=== PATIENT | female | born 1940 | race Caucasian/White ===

== ENCOUNTER 2017-06-28 06:22 | Outpatient (CLI) | payer MEDICARE | END 2017-06-28 06:23 | disposition short-term general hospital (02) | LOC: EMS 06:22 | PROVIDERS: ATTEND Surgery | DX: R53.1 Weakness (principal) | CPT/HCPCS: A0425; A0427 ==

== ENCOUNTER 2017-08-01 13:34 | Outpatient (CLI) | payer MEDICARE | END 2017-08-01 13:35 | disposition critical access hospital (66) | LOC: EMS 13:34 | PROVIDERS: ATTEND Surgery | DX: R06.02 Shortness of breath (principal) | CPT/HCPCS: A0425; A0429 ==

== ENCOUNTER 2017-08-01 13:50 | Emergency (ER) | payer MEDICARE ==
--- NOTE | 2017-08-01 14:17 | ED Physician Documentation ---
PD HPI DYSPNEA - Stated complaint Stated Complaint: SOA - Chief complaint Chief Complaint: Resp - History obtained from History obtained from: Patient - History of Present Illness Timing - onset: Last night (She has noted some increased pedal/leg edema for the past week but only mild dyspnea. Onset of dyspnea with chest pressure last night about 1 am. Continues into today. She is feeling dyspnea similar to when she had pneumonia in May, but has not had cough nor fevers.) Timing - onset during: Rest Timing - duration: Hours Timing - details: Abrupt onset, Still present Inciting event(s): Immobilization/travel (she was in LTC/Rehab from recent pneumonia and back home the past week. Usually ambulates without assistance.). No: URI Worsened by: Exertion. No: Laying flat Associated symptoms: Wheezing, Chest pain / discomfort (anteriorly), Bilateral edema. No: Fever, Cough, Palpitations, Unilateral edema Similar symptoms before: Diagnosis (has had CHF and pneumonia in past few months.) Recently seen: Admitted (Was in [facility] 06-09-11 for pneumonia, CHF, anemia and CRF. Was in [facility] for anemia and dyspnea and had EGD showing some esophagitis. Had EGD done just this past week.) Review of Systems Constitutional: reports: Fatigue. denies: Fever, Chills, Myalgias Nose: denies: Rhinorrhea / runny nose, Congestion Throat: denies: Sore throat Cardiac: reports: Chest pain / pressure, Pedal edema. denies: Palpitations, Calf pain Respiratory: reports: Dyspnea. denies: Cough, Wheezing GI: denies: Abdominal Pain, Nausea, Vomiting, Diarrhea : denies: Dysuria, Frequency Skin: denies: Rash, Lesions Musculoskeletal: denies: Neck pain, Back pain Neurologic: reports: Generalized weakness. denies: Focal weakness, Numbness, Near syncope Psychiatric: denies: Anxiety Endocrine: reports: Weight loss Immunocompromised: denies: Immunocompromised PD PAST MEDICAL HISTORY - Past Medical History Cardiovascular: Hypertension, High cholesterol Respiratory: Shortness of breath - Past Surgical History Past Surgical History: Yes - Present Medications Home Medications: Ambulatory Orders Medication Instructions Recorded Confirmed Omeprazole [Prilosec] 20 mg PO DAILY 06/22/13 08/01/17 Cyanocobalamin (Vitamin B-12) 2,500 mcg PO DAILY 05/27/17 08/01/17 [Vitamin B-12] Furosemide [Lasix] 20 mg PO DAILY #7 tablet 06/13/17 08/01/17 Lisinopril 0 mg PO DAILY 08/01/17 08/01/17 - Allergies Allergies/Adverse Reactions: Allergies Allergy/AdvReac Type Severity Reaction Status Date / Time amlodipine [From [facility]] Allergy Unknown Verified 08/01/17 14:12 tramadol AdvReac Emesis Verified 06/09/17 06:43 - Living Situation Living Situation: reports: Alone Living Arrangement: reports: At home - Social History Does the pt smoke?: Yes Smoking Status: Current some day smoker Does the pt drink ETOH?: No Does the pt have substance abuse?: No - Family History Family history: reports: Non contributory. denies: Venous thromboembolism - Immunizations Immunizations are current?: Yes - POLST POLST Status: Full Code PD ED PE NORMAL - Vitals Vital signs reviewed: Yes (sats 86-88% RA and to 94% with NC oxygen. ) - General General: Alert and oriented X 3, Well developed/nourished - HEENT HEENT: Ears normal, Pharynx benign - Neck Neck: Supple, no meningeal sign, No adenopathy - Cardiac Cardiac: No murmur. No: RRR (tachycardic but regular) - Respiratory Respiratory: No: No respiratory distress (she is not having labored breathing nor tachypnea. ), Clear bilaterally (crackles at bases to bottom third, but not significant amount.) - Abdomen Abdomen: Soft, Non tender - Female Female : Deferred - Rectal Rectal: Deferred - Back Back: No CVA TTP - Derm Derm: Normal color, Warm and dry, No rash - Extremities Extremities: No deformity, No tenderness to palpate, Normal ROM s pain, No calf tenderness / cord, Other (2+ edema in both legs without tenderness. ) - Neuro Neuro: Alert and oriented X 3, No motor deficit, Normal speech - Psych Psych: Normal mood, Normal affect Results - Vitals Vitals: Vital Signs - 24 hr 08/01/17 08/01/17 08/01/17 13:50 14:30 14:45 Temperature 35.9 C L Heart Rate 100 107 H 116 H Respiratory 20 20 23 Rate Blood Pressure 150/91 H 145/83 H O2 Saturation 94 92 08/01/17 08/01/17 08/01/17 15:00 15:30 17:15 Temperature Heart Rate 116 H 116 H 108 H Respiratory 20 20 22 Rate Blood Pressure 159/91 H 162/87 H 136/77 H O2 Saturation 94 92 90 L Oxygen O2 Source Nasal cannula Oxygen Flow Rate 4 - EKG (time done) 13:57 Rate: Rate (enter#) (115) Rhythm: Sinus tachycardia [place]: Normal QRS: LVH Ischemia: Normal ST segments. No: ST elevation c/w ischemia, ST depression, Hyperacute T waves Compare to prior EKG: Changed from prior EKG (similar morphology but rate is faster. ) - Labs Labs: Laboratory Tests 08/01/17 08/01/17 08/01/17 14:52 14:52 14:52 WBC 10.6 RBC 2.49 L Hgb 7.9 L Hct 24.5 L MCV 98.5 MCH 31.6 H MCHC 32.1 RDW 17.8 H Plt Count 508 H MPV 7.1 L Neut # 9.4 H Lymph # 0.6 L [place] # 0.6 Eos # 0.0 Baso # 0.0 Absolute Nucleated RBC 0.01 Nucleated RBC % 0.1 D-Dimer Sodium 141 Potassium 3.9 Chloride 112 H Carbon Dioxide 18 L Anion Gap 11.0 BUN 36 H Creatinine 1.9 H Estimated GFR (MDRD) 26 L Glucose 113 H Calcium 8.8 Magnesium 1.8 Total Bilirubin 0.2 AST 21 ALT 14 Alkaline Phosphatase 88 Troponin I 0.83 H* B-Natriuretic Peptide Total Protein 6.8 Albumin 2.7 L Globulin 4.1 Albumin/Globulin Ratio 0.7 L Lipase 53 H 08/01/17 08/01/17 14:52 14:52 WBC RBC Hgb Hct MCV MCH MCHC RDW Plt Count MPV Neut # Lymph # [place] # Eos # Baso # Absolute Nucleated RBC Nucleated RBC % D-Dimer 425.0 H Sodium Potassium Chloride Carbon Dioxide Anion Gap BUN Creatinine Estimated GFR (MDRD) Glucose Calcium Magnesium Total Bilirubin AST ALT Alkaline Phosphatase Troponin I B-Natriuretic Peptide 7745.0 H Total Protein Albumin Globulin Albumin/Globulin Ratio Lipase - Rads (name of study) chest Radiology: Prelim report reviewed, EMP read contemporaneously (bilateral small effusions. Some interstitial changes c/w mild to moderate CHF. ) PD MEDICAL DECISION MAKING - ED course Complexity details: considered differential (Concern for likely CHF though her sats and HR are worse than expected based on exam. She is not in resp failure, but has considerable hypoxia. I am concerned for PE as well as CHF. Her GFR is too low for CT-A and we don't have Nuc Med (VQ) or ECHO for the next 3 days. I feel she needs to be at higher level of care. ), d/w patient, d/w computing consultant ( Dr. Keller Cardiology at [facility], and the Dr. Perkins Hospitalist, who accepts transfer. ), other (considering PE I did start Heparin but then talked with [facility] provider with recent EGD results of esophagitis with bleeding, so to not anticoagulate the patien. The Heparin was stopped. ) Departure - Departure Disposition: 02 Transfer Acute Care Hosp Clinical Impression: Hypoxia Congestive heart failure Qualifiers: Congestive heart failure type: unspecified congestive heart failure type Congestive heart failure chronicity: acute on chronic Qualified Code(s): I50.9 - Heart failure, unspecified Dyspnea Qualifiers: Dyspnea type: shortness of breath Qualified Code(s): R06.02 - Shortness of breath; R06.00 - Dyspnea, unspecified; R06.01 - Orthopnea CKD (chronic kidney disease) Qualifiers: Chronic kidney disease stage: unspecified stage Qualified Code(s): N18.9 - Chronic kidney disease, unspecified Anemia Qualifiers: Anemia type: unspecified type Qualified Code(s): D64.9 - Anemia, unspecified Condition: Stable Record reviewed to determine appropriate education?: Yes
[2017-08-01] MEDS ORDERED: ALBUTEROL NEB 2.5 MG/3 ML INH STA ×2 (14:41→16:59)
[2017-08-01 15:03] LABS: BASOPHILS % (AUTO) 0.4 %; EOSINOPHILS % (AUTO) 0.1 %; HCT - HEMATOCRIT 24.5 % (37.0-47.0); HGB - HEMOGLOBIN 7.9 g/dL (12.0-16.0); LYMPHOCYTES # (AUTO) 0.6 10^3/uL (1.5-3.5); LYMPHOCYTES % (AUTO) 5.4 %; MEAN CORPUSCULAR HEMOGLOBIN 31.6 pg (27.0-31.0); MEAN CORPUSCULAR HGB CONC 32.1 g/dL (32.0-36.0); MEAN CORPUSCULAR VOLUME 98.5 fL (81.0-99.0); MEAN PLATELET VOLUME 7.1 fL (7.9-10.8); MONOCYTES # (AUTO) 0.6 10^3/uL (0.0-1.0); MONOCYTES % (AUTO) 5.8 %; NEUTROPHILS # (AUTO) 9.4 10^3/uL (1.5-6.6); NEUTROPHILS % (AUTO) 88.3 %; NUCLEATED RED BLOOD CELLS AUTO 0.1 /100WBC; RED BLOOD COUNT 2.49 10^6/uL (4.20-5.40); RED CELL DISTRIBUTION WIDTH 17.8 % (12.0-15.0); UNCORRECTED WHITE BLOOD COUNT 10.6 x10^3/uL; WHITE BLOOD COUNT 10.6 x10^3/uL (4.8-10.8)
[2017-08-01 15:11] LABS: ALBUMIN/GLOBULIN RATIO 0.7 (1.0-2.2); BILIRUBIN,TOTAL 0.2 mg/dL (0.2-1.0); CALCIUM 8.8 mg/dL (8.5-10.3); CREATININE 1.9 mg/dL (0.4-1.0); MAGNESIUM 1.8 mg/dL (1.7-2.8); POTASSIUM 3.9 mmol/L (3.5-5.0); TOTAL PROTEIN 6.8 g/dL (6.7-8.2)
--- NOTE | 2017-08-01 15:40 | XRAY Preliminary Report ---
Exam: XR CHEST 2 VIEW PA/LAT IMPRESSION: Findings suggest mild congestive failure. Bilateral pleural effusions are present. [facility] SITE ID: [id number]
--- NOTE | 2017-08-01 15:43 | XRAY Report ---
EXAM: CHEST RADIOGRAPHY EXAM DATE: 08/01/2017 03:21 PM. CLINICAL HISTORY: Dyspnea and hypoxia. COMPARISON: 06/09/2017. TECHNIQUE: 2 views. FINDINGS: Lungs/Pleura: Moderate cardiomegaly. Central pulmonary vascular congestion. Bilateral interstitial op acity. Bibasal opacities suggesting small effusions and atelectasis and/or consolidation. No pneumoth orax. Mediastinum: As above. Other: None. IMPRESSION: Findings suggest mild congestive failure. Bilateral pleural effusions are present. [facility] Referring Provider Line: [phone] SITE ID: [id number]
[2017-08-01] MEDS ORDERED: HEPARIN 5,000 UNIT/ML VIAL IVP STA (15:54)
[2017-08-01] MEDS ORDERED: HEPARIN 25,000 UNITS/500 ML NS 25,000 UNIT/500 ML BAG IV STA (15:54)
[2017-08-01] MEDS ORDERED: FUROSEMIDE 40 MG/4 ML VIAL IVP STA ×2 (15:55→16:58)
[2017-08-01] MEDS ORDERED: NITROGLYCERIN SL 0.4 MG TABLET SL STA (15:56)
[2017-08-01] MEDS ORDERED: FUROSEMIDE 40 MG/4 ML VIAL ONE (16:09)
[2017-08-01 19:38] VITALS: BP 147/86
== END 2017-08-01 19:00 | disposition short-term general hospital (02) ==
LOC: EDUNIT# → ED 13:50
DX: I13.0 Hypertensive heart and chronic kidney disease with heart failure and stage 1 through stage 4 chronic kidney disease, or unspecified chronic kidney disease (principal); I50.9 Heart failure, unspecified; N18.9 Chronic kidney disease, unspecified; D63.1 Anemia in chronic kidney disease; R09.02 Hypoxemia; R06.01 Orthopnea; E78.00 Pure hypercholesterolemia, unspecified; F17.200 Nicotine dependence, unspecified, uncomplicated
CPT/HCPCS: 36415; 71020; 80053; 83690; 83735; 83880; 84484; 85025; 85379; 93005; 94640; 96365; 96375; 96376; 99285; A9270; J7613

== ENCOUNTER 2017-08-01 19:00 | Outpatient (CLI) | payer MEDICARE | END 2017-08-01 19:01 | disposition short-term general hospital (02) | LOC: EMS 19:00 | PROVIDERS: ATTEND Surgery | DX: I50.9 Heart failure, unspecified (principal) | CPT/HCPCS: A0425; A0426 ==

== ENCOUNTER 2017-09-17 11:12 | Outpatient (CLI) | payer MEDICARE ==
[2017-09-17 19:06] LABS: BASOPHILS # (AUTO) 0.1 10^3/uL (0.0-0.1); BASOPHILS % (AUTO) 0.8 %; EOSINOPHILS # (AUTO) 0.1 10^3/uL (0.0-0.7); HGB - HEMOGLOBIN 8.7 g/dL (12.0-16.0); LYMPHOCYTES # (AUTO) 0.9 10^3/uL (1.5-3.5); LYMPHOCYTES % (AUTO) 9.5 %; MEAN CORPUSCULAR HEMOGLOBIN 31.1 pg (27.0-31.0); MEAN CORPUSCULAR HGB CONC 31.2 g/dL (32.0-36.0); MEAN CORPUSCULAR VOLUME 99.9 fL (81.0-99.0); MONOCYTES # (AUTO) 0.7 10^3/uL (0.0-1.0); MONOCYTES % (AUTO) 7.3 %; NEUTROPHILS # (AUTO) 7.4 10^3/uL (1.5-6.6); NEUTROPHILS % (AUTO) 81.4 %; PLT - PLATELET COUNT 331 10^3/uL (130-450); RED BLOOD COUNT 2.81 10^6/uL (4.20-5.40); WHITE BLOOD COUNT 9.1 x10^3/uL (4.8-10.8)
[2017-09-17 19:27] LABS: ALBUMIN 3.6 g/dL (3.2-5.5); ALBUMIN/GLOBULIN RATIO 0.9 (1.0-2.2); BILIRUBIN,TOTAL 0.6 mg/dL (0.2-1.0); CALCIUM 9.4 mg/dL (8.5-10.3); CREATININE 1.9 mg/dL (0.4-1.0); MAGNESIUM 2.1 mg/dL (1.7-2.8); PHOSPHORUS 4.8 mg/dL (2.5-4.6); TOTAL PROTEIN 7.4 g/dL (6.7-8.2)
== END 2017-09-17 11:13 ==
LOC: LAB.WCP 11:12
PROVIDERS: ATTEND Physician Assistant Medical
DX: I48.0 Paroxysmal atrial fibrillation (principal); D50.9 Iron deficiency anemia, unspecified
CPT/HCPCS: 36415; 80053; 83735; 84100; 85025